=== PATIENT | female | born 1945 | race Caucasian/White ===

== ENCOUNTER → 2017-09-02 | Outpatient (CLI) | payer MEDICARE, OTHER ==
--- NOTE | 2017-09-02 15:55 | MR ---
EXAMINATION TYPE: MR brain wo con DATE OF EXAM: 09/02/2017 COMPARISON: None HISTORY: CVA, Loss of memory CONTRAST: Performed utilizing 0 mL intravenous Gadavist gadolinium contrast. TECHNIQUE: Multiplanar, multiecho imaging on a 3.0 Stella magnet is performed through the brain. Stud y is performed within 24 hours of arrival to the hospital. The craniovertebral junction is normal. The pituitary is normal. Diffusion-weighted imaging is performed. No abnormal hyperintensity is present to suggest an acute i ntracranial infarct or acute ischemic change. There is a focal area of hyperintensity on inversion recovery weighted sequences within the right pos terior parietal lobe. Some adjacent subcortical white matter changes present within a gyrus. Some min imal punctate white matter changes are in the subcortical white matter of the left frontal parietal l obes and within the right frontal lobe. Findings are nonspecific but could be related to microvascula r ischemic change. Ventricles and sulci are appropriate for the patient age. IMPRESSIONS: 1. Scattered punctate areas of white matter change, and not out of proportion to the patient's age.
== END | disposition home or self-care (01) ==
LOC: RADMRIMAIN 12:41
PROVIDERS: ATTEND Psychiatry & Neurology Neurology
DX: R90.89 Other abnormal findings on diagnostic imaging of central nervous system (principal)
CPT/HCPCS: 70551

== ENCOUNTER 2019-09-23 19:46 | Inpatient (IN) | payer MEDICARE, OTHER ==
[2019-09-23] MEDS ORDERED: SODIUM CHLORIDE 0.9% 500 ML 500 ML IV STA (20:40)
[2019-09-23] MEDS ORDERED: HYDROmorphone 0.5 MG/0.5 ML SYRINGE IVP STA ×2 (20:40→23:06)
[2019-09-23] MEDS ORDERED: ONDANSETRON 4 MG/2 ML VIAL IVP STA (20:40)
--- NOTE | 2019-09-23 20:49 | ED ---
General Adult HPI - General Chief complaint: Back Pain/Injury Stated complaint: back pain Time Seen by Provider: 09/23/19 20:15 Source: patient Mode of arrival: wheelchair Limitations: no limitations - History of Present Illness Initial comments: 74-year-old female patient presents to the emergency department today for evaluation of right upper quadrant abdominal pain radiating into the right shoulder and right back. Patient states the symptoms of the present for the last 4 days. States that she has had constant pain. She has had some mild nausea but no vomiting. States her bowel movements and urination is normal. Denies any fever or chills. Denies history of abdominal surgery. Patient states she has had issues with her gallbladder in the past. States she does have an appointment coming up with the GI specialist. Patient states that she has been too miserable over the last 4 days to wait. She denies any shortness of breath or cough. Denies dizziness or weakness. Patient denies any recent rash, diarrhea, constipation, numbness, tingling, dizziness, weakness, hematuria, dysuria, urinary urgency, urinary frequency, headache, visual changes, or any other complaints. - Related Data Home Medications Medication Instructions Recorded Confirmed Estrogens, Conjugated [Premarin] 0.3125 mg PO WE 09/23/19 09/23/19 Gabapentin 600 mg PO Q8H 09/23/19 09/23/19 Levothyroxine Sodium [Synthroid] 75 mcg PO DAILY 09/23/19 09/23/19 PARoxetine [Paxil] 20 mg PO DAILY 09/23/19 09/23/19 Simvastatin 5 mg PO HS 09/23/19 09/23/19 amLODIPine [Norvasc] 5 mg PO DAILY 09/23/19 09/23/19 oxyCODONE HCL [oxyCODONE HCL (IR)] 10 mg PO Q6H PRN 09/23/19 09/23/19 Allergies Allergy/AdvReac Type Severity Reaction Status Date / Time No Known Allergies Allergy Unverified 09/23/19 23:10 Review of Systems ROS Statement: Those systems with pertinent positive or pertinent negative responses have been documented in the HPI. ROS Other: All systems not noted in ROS Statement are negative. Past Medical History Past Medical History: Diabetes Mellitus, Hypertension Additional Past Medical History / Comment(s): chronic back pain History of Any Multi-Drug Resistant Organisms: None Reported Additional Past Surgical History / Comment(s): breast reduction, fatty liver Past Psychological History: No Psychological Hx Reported Smoking Status: Never smoker Past Alcohol Use History: None Reported Past Drug Use History: None Reported General Exam Limitations: no limitations General appearance: alert, in no apparent distress, other (This is a well- developed, well-nourished elderly female patient in no acute distress. Vital signs upon presentation are temperature 99.9F, pulse 101, respirations 16, blood pressure 145/78, pulse ox 95% on room air.) Eye exam: Present: normal appearance, PERRL, EOMI. Absent: scleral icterus, conjunctival injection, periorbital swelling ENT exam: Present: normal exam, normal oropharynx, mucous membranes moist Respiratory exam: Present: normal lung sounds bilaterally. Absent: respiratory distress, wheezes, rales, rhonchi, stridor Cardiovascular Exam: Present: regular rate, normal rhythm, normal heart sounds. Absent: systolic murmur, diastolic murmur, rubs, gallop, clicks GI/Abdominal exam: Present: soft, tenderness (Midepigastric and right upper quadrant tenderness), normal bowel sounds. Absent: distended, guarding, rebound, rigid Neurological exam: Present: alert, oriented X3, CN II-XII intact Psychiatric exam: Present: normal affect, normal mood Skin exam: Present: warm, dry, intact, normal color. Absent: rash Course Vital Signs 09/23/19 09/23/19 09/23/19 19:51 21:30 22:00 Temperature 99.9 F H Pulse Rate 101 H Respiratory 16 Rate Blood Pressure 145/78 146/77 153/133 O2 Sat by Pulse 95 87 L 90 L Oximetry 09/23/19 09/23/19 09/24/19 22:30 23:00 01:00 Temperature 98.9 F Pulse Rate 74 97 Respiratory 16 16 Rate Blood Pressure 108/87 133/90 159/82 O2 Sat by Pulse 99 99 98 Oximetry EKG Findings - EKG Comments: EKG Findings:: EKG obtained at 2221 shows normal sinus rhythm with a ventricular rate of 91, VA interval 112, QR scientologist 78, QT 334, QTC 410. No evidence of ST elevation or depression. Medical Decision Making - Medical Decision Making 74-year-old female patient presents to the emergency department today for evaluation of right upper quadrant pain radiating into her right chest into her right upper back. Patient is also reporting nausea with this. Occasional shortness of breath when the pain is at its worse. Physical examination revealed mild midepigastric tenderness. Labs reviewed and are unremarkable. EKG is unremarkable. Troponin is negative. Ultrasound is negative. CT abdomen and pelvis negative. Patient is still significantly uncomfortable upon reevaluation. Given presence of chest pain and abdominal pain we will admit to the hospital for serial troponins and observation overnight. Patient is agreeable to this plan - Lab Data Result diagrams: 09/23/19 21:05 09/23/19 21:05 Lab Results 09/23/19 09/23/19 09/23/19 Range/Units 21:05 21:05 21:05 WBC 10.3 (3.8-10.6) k/uL RBC 4.77 (3.80-5.40) m/uL Hgb 13.4 (11.4-16.0) gm/dL Hct 42.9 (34.0-46.0) % MCV 89.9 (80.0-100.0) fL MCH 28.1 (25.0-35.0) pg MCHC 31.2 (31.0-37.0) g/dL RDW 13.2 (11.5-15.5) % Plt Count 186 (150-450) k/uL Neutrophils % 70 % Lymphocytes % 20 % Monocytes % 6 % Eosinophils % 2 % Basophils % 0 % Neutrophils # 7.2 (1.3-7.7) k/uL Lymphocytes # 2.1 (1.0-4.8) k/uL Monocytes # 0.7 (0-1.0) k/uL Eosinophils # 0.2 (0-0.7) k/uL Basophils # 0.0 (0-0.2) k/uL Hypochromasia Slight Sodium 135 L (137-145) mmol/L Potassium 4.4 (3.5-5.1) mmol/L Chloride 97 L (98-107) mmol/L Carbon Dioxide 30 (22-30) mmol/L Anion Gap 8 mmol/L BUN 15 (7-17) mg/dL Creatinine 0.52 (0.52-1.04) mg/dL Est GFR (CKD-EPI)AfAm >90 (>60 ml/min/1.73 sqM) Est GFR (CKD-EPI)NonAf >90 (>60 ml/min/1.73 sqM) Glucose 162 H (74-99) mg/dL Plasma Lactic Acid Praveen (0.7-2.0) mmol/L Calcium 9.6 (8.4-10.2) mg/dL Total Bilirubin 1.1 (0.2-1.3) mg/dL AST 21 (14-36) U/L ALT 9 (4-34) U/L Alkaline Phosphatase 84 (38-126) U/L Troponin I (0.000-0.034) ng/mL Total Protein 7.7 (6.3-8.2) g/dL Albumin 4.7 (3.5-5.0) g/dL Amylase 51 (30-110) U/L Lipase 21 L (23-300) U/L Urine Color Yellow Urine Appearance Clear (Clear) Urine pH 6.0 (5.0-8.0) Ur Specific Ashton 1.018 (1.001-1.035) Urine Protein Trace H (Negative) Urine Glucose (UA) Negative (Negative) Urine Ketones Negative (Negative) Urine Blood Small H (Negative) Urine Nitrite Negative (Negative) Urine Bilirubin Negative (Negative) Urine Urobilinogen <2.0 (<2.0) mg/dL Ur Leukocyte Esterase Negative (Negative) Urine RBC 3 (0-5) /hpf Urine WBC 1 (0-5) /hpf Ur Squamous Epith Cells 1 (0-4) /hpf Urine Bacteria Rare H (None) /hpf Hyaline Casts 1 (0-2) /lpf Urine Mucus Occasional H (None) /hpf 09/23/19 09/23/19 Range/Units 21:05 21:05 WBC (3.8-10.6) k/uL RBC (3.80-5.40) m/uL Hgb (11.4-16.0) gm/dL Hct (34.0-46.0) % MCV (80.0-100.0) fL MCH (25.0-35.0) pg MCHC (31.0-37.0) g/dL RDW (11.5-15.5) % Plt Count (150-450) k/uL Neutrophils % % Lymphocytes % % Monocytes % % Eosinophils % % Basophils % % Neutrophils # (1.3-7.7) k/uL Lymphocytes # (1.0-4.8) k/uL Monocytes # (0-1.0) k/uL Eosinophils # (0-0.7) k/uL Basophils # (0-0.2) k/uL Hypochromasia Sodium (137-145) mmol/L Potassium (3.5-5.1) mmol/L Chloride (98-107) mmol/L Carbon Dioxide (22-30) mmol/L Anion Gap mmol/L BUN (7-17) mg/dL Creatinine (0.52-1.04) mg/dL Est GFR (CKD-EPI)AfAm (>60 ml/min/1.73 sqM) Est GFR (CKD-EPI)NonAf (>60 ml/min/1.73 sqM) Glucose (74-99) mg/dL Plasma Lactic Acid Praveen 1.1 (0.7-2.0) mmol/L Calcium (8.4-10.2) mg/dL Total Bilirubin (0.2-1.3) mg/dL AST (14-36) U/L ALT (4-34) U/L Alkaline Phosphatase (38-126) U/L Troponin I <0.012 (0.000-0.034) ng/mL Total Protein (6.3-8.2) g/dL Albumin (3.5-5.0) g/dL Amylase (30-110) U/L Lipase (23-300) U/L Urine Color Urine Appearance (Clear) Urine pH (5.0-8.0) Ur Specific Ashton (1.001-1.035) Urine Protein (Negative) Urine Glucose (UA) (Negative) Urine Ketones (Negative) Urine Blood (Negative) Urine Nitrite (Negative) Urine Bilirubin (Negative) Urine Urobilinogen (<2.0) mg/dL Ur Leukocyte Esterase (Negative) Urine RBC (0-5) /hpf Urine WBC (0-5) /hpf Ur Squamous Epith Cells (0-4) /hpf Urine Bacteria (None) /hpf Hyaline Casts (0-2) /lpf Urine Mucus (None) /hpf - Radiology Data Radiology results: report reviewed, image reviewed Ultrasound of the right upper quadrant abdomen is obtained. Report was reviewed in its entirety. Impression by Dr. Jara shows no dilated ducts. No gallstones seen. Normal right kidney. CT abdomen and pelvis with contrast was obtained. Report was reviewed in its entirety. Impression by Dr. Jara shows sigmoid diverticulosis without diverticulitis. Thoracolumbar dextroscoliosis with spondylitic changes. Pleural thickening and atelectasis at the lung bases. Two-view x-ray of the chest is obtained. Report was reviewed in its entirety. Impression by Dr. Jara shows minimal pleural reaction of the left lateral lung base. Normal heart. Disposition Clinical Impression: Abdominal pain, Chest pain Disposition: ADMITTED IP TO THIS HOSP Condition: Serious Decision to Admit Reason: Admit from EC Decision Date: 09/24/19 Decision Time: 00:52
[2019-09-23 21:23] LABS: Basophils % (A) 0 %; Eosinophils # (A) 0.2 k/uL (0-0.7); Eosinophils % (A) 2 %; HCT 42.9 % (34.0-46.0); HGB 13.4 gm/dL (11.4-16.0); Hypochromasia Slight; Lymphocytes # (A) 2.1 k/uL (1.0-4.8); Lymphocytes % (A) 20 %; MCH 28.1 pg (25.0-35.0); MCHC 31.2 g/dL (31.0-37.0); MCV 89.9 fL (80.0-100.0); Mean Platelet Volume 9.3; Monocytes # (A) 0.7 k/uL (0-1.0); Monocytes % (A) 6 %; Neutrophils # (A) 7.2 k/uL (1.3-7.7); Neutrophils % (A) 70 %; Platelet Count 186 k/uL (150-450); RBC 4.77 m/uL (3.80-5.40); RDW 13.2 % (11.5-15.5); WBC 10.3 k/uL (3.8-10.6)
[2019-09-23 21:32] LABS: ALT 9 U/L (4-34); AST 21 U/L (14-36); African American GFR (CKD) >90 (>60 ml/min/1.73 sqM); Albumin 4.7 g/dL (3.5-5.0); Alkaline Phosphatase 84 U/L (38-126); Amylase 51 U/L (30-110); Anion Gap 8 mmol/L; Blood Urea Nitrogen 15 mg/dL (7-17); Calcium 9.6 mg/dL (8.4-10.2); Carbon Dioxide 30 mmol/L (22-30); Chloride 97 mmol/L (98-107); Glucose 162 mg/dL (74-99); Lipase 21 U/L (23-300); Non-African American GFR(CKD) >90 (>60 ml/min/1.73 sqM); Potassium 4.4 mmol/L (3.5-5.1); Sodium 135 mmol/L (137-145); Total Bilirubin 1.1 mg/dL (0.2-1.3); Total Protein 7.7 g/dL (6.3-8.2)
[2019-09-23 22:28] LABS: Appearance,Urine Clear (Clear); Bacteria,Urine Rare /hpf; Bilirubin,Urine Negative (Negative); Blood,Urine Small (Negative); Color,Urine Yellow; Glucose,Urine (UA) Negative (Negative); Hyaline Casts,Urine 1 /lpf (0-2); Ketones,Urine Negative (Negative); Leukocyte Esterase,Urine Negative (Negative); Mucus,Urine Occasional /hpf; Nitrite,Urine Negative (Negative); Protein,Urine Trace (Negative); RBC,Urine 3 /hpf (0-5); Specific Gravity,Urine 1.018 (1.001-1.035); Squamous Epithelial Cell,Urine 1 /hpf (0-4); Urobilinogen,Urine <2.0 mg/dL (<2.0); WBC,Urine 1 /hpf (0-5)
--- NOTE | 2019-09-23 23:15 | US ---
EXAMINATION TYPE: US abdomen limited DATE OF EXAM: 09/23/2019 COMPARISON: NONE CLINICAL HISTORY: RUQ pain, R Shoulder pain. RUQ pain x 4 days. Hx gallbladder issues per patient. EXAM MEASUREMENTS: Liver Length: 14.8 cm Gallbladder Wall: 0.28 cm CHD: 0.31 cm, CBD obscured by gas. Right Kidney: 11.7 x 4.8 x 5.4 cm *Limited due to overlying bowel gas. Pancreas: Limited due to gas. Tail not seen. Liver: Appears to have an increased echogenicity. Most images taken intercostally. Gallbladder: Minimal internal echoes versus artifact. Measures in 7.4 cm in length. Evidence for sonographic Burgos's sign: No CBD: Not well seen, CHD measured as mentioned above. Right Kidney: No hydronephrosis or masses seen IMPRESSION: No dilated ducts. No gallstones seen. Normal right kidney.
--- NOTE | 2019-09-24 00:20 | CT ---
EXAMINATION TYPE: CT abdomen pelvis w con DATE OF EXAM: 09/23/2019 COMPARISON: None HISTORY: right side abd pain, appendectomy CT DLP: 1129.8 mGycm Automated exposure control for dose reduction was used. CONTRAST: Performed with IV Contrast, patient injected with 100 mL of Isovue 300. Multiple axial sections were obtained from the diaphragm to the floor the pelvis with IV contrast. There is some pleural thickening and atelectasis at both lung bases and more on the right side. There is no pericardial effusion. There is small amount of right-sided pleural fluid. Gallbladder liver spleen pancreas stomach appear intact. Bile ducts are not dilated. There is no adrenal mass. Kidneys show satisfactory contrast opacification. There is no hydronephrosi s. Ureters are not dilated. There is no retroperitoneal adenopathy. Bladder distends smoothly. There are bilateral inguinal hernias that contain fat. There are multiple sigmoid diverticula. There is no sign of diverticulitis. There is thoracolumbar de xtroscoliosis. There are spondylotic changes in the mid and lower lumbar spine. There is no compressi on fracture. The bony pelvis is intact. Appendix is not seen. There is no sign of thickened appendix. There is no mesenteric edema. There is no ascites or free air. There is no sign of a bowel obstruction. Delayed images show normal renal exc retion. IMPRESSION: Sigmoid diverticulosis without diverticulitis. Thoracolumbar dextroscoliosis with spondylotic changes . Pleural thickening and atelectasis at the lung bases.
[2019-09-24] MEDS ORDERED: ONDANSETRON 4 MG/2 ML VIAL IVP PRN (00:50)
[2019-09-24] MEDS ORDERED: NALOXONE 0.4 MG/ML 1 ML VIAL IV PRN (00:50)
--- NOTE | 2019-09-24 01:19 | XR ---
EXAMINATION TYPE: XR chest 2V DATE OF EXAM: 09/24/2019 COMPARISON: NONE HISTORY: Chest pain TECHNIQUE: 2 views FINDINGS: Heart is normal. There is some mild atelectasis and pleural reaction lateral left lung base . Right lung is clear. Thoracic aorta is atheromatous. There is no heart failure. Bony thorax is inta ct. IMPRESSION: Minimal pleural reaction lateral left lung base. Normal heart.
[2019-09-24] MEDS: HYDROmorphone 0.5 MG/0.5 ML SYRINGE IVP PRN ×3 (01:56→10:10)
[2019-09-24] MEDS ORDERED: MAG HYDROX/AL HYDROX/SIMETH 30 ML CUP PO PRN (03:24)
--- NOTE | 2019-09-24 03:28 | P.HPIM ---
History of Present Illness H&P Date: 09/24/19 Chief Complaint: RUQ abd pain 74-year-old female with chronic low back pain and hypertension Patient comes in complaining of 4 day history of right upper quadrant abdominal pain radiating to the right shoulder this pain has became even more severe today she reports that the constant pain 8 out of 10 in severity sharp pain gets worse with moving and calms down with pain pills she takes oxycodone for her back pain. Patient denies any associated nausea vomiting denies any palpitations denies any shortness of breath denies any sweating dizziness or lightheadedness. She denies any exertional dyspnea she denies any orthopnea or paroxysmal nocturnal dyspnea she denies having any similar episodes in the past she denies any coronary artery disease in the past. She denies any family history of coronary artery disease. Patient denies any nausea vomiting denies any diarrhea denies any unsanitary food denies any GI bleeding. In the ED EKG was showing normal sinus rhythm, troponins negative blood work overall unremarkable patient admitted for close monitoring of her pain trending her troponins to rule out acute coronary syndrome Review of Systems Pertinent positives as noted in HPI. All other systems were reviewed and are negative Past Medical History Past Medical History: Diabetes Mellitus, Hypertension Additional Past Medical History / Comment(s): chronic back pain History of Any Multi-Drug Resistant Organisms: None Reported Additional Past Surgical History / Comment(s): breast reduction, fatty liver Past Psychological History: No Psychological Hx Reported Smoking Status: Never smoker Past Alcohol Use History: None Reported Past Drug Use History: None Reported Medications and Allergies Home Medications Medication Instructions Recorded Confirmed Type Estrogens, Conjugated [Premarin] 0.3125 mg PO WE 09/23/19 09/23/19 History Gabapentin 600 mg PO Q8H 09/23/19 09/23/19 History Levothyroxine Sodium [Synthroid] 75 mcg PO DAILY 09/23/19 09/23/19 History PARoxetine [Paxil] 20 mg PO DAILY 09/23/19 09/23/19 History Simvastatin 5 mg PO HS 09/23/19 09/23/19 History amLODIPine [Norvasc] 5 mg PO DAILY 09/23/19 09/23/19 History oxyCODONE HCL [oxyCODONE HCL (IR)] 10 mg PO Q6H PRN 09/23/19 09/23/19 History Allergies Allergy/AdvReac Type Severity Reaction Status Date / Time No Known Allergies Allergy Unverified 09/23/19 23:10 Physical Exam Vitals: Vital Signs Temp Pulse Resp BP Pulse Ox 09/24/19 01:00 98.9 F 97 16 159/82 98 09/23/19 23:00 74 16 133/90 99 09/23/19 22:30 108/87 99 09/23/19 22:00 153/133 90 L 09/23/19 21:30 146/77 87 L 09/23/19 19:51 99.9 F H 101 H 16 145/78 95 Intake and Output 09/23/19 09/23/19 09/24/19 14:59 22:59 06:59 Other: Weight 76.204 kg Constitutional: No acute distress, conversant, pleasant Eyes: Anicteric sclerae, moist conjunctiva, Pupils equal round reactive to light ENMT: NC/AT Oropharynx clear, no erythema, or exudates Neck: Supple, FROM, no masses, or JVD No carotid bruits No thyromegaly Lungs: Clear to auscultation Clear to percussion Normal respiratory effort, no accessory muscle use Cardiovascular: Heart regular in rate and rhythm, No murmurs, gallops, or rubs No peripheral edema Abdominal: Soft Nontender, no guarding, rebound or rigidity Abdomen moving with respiration Normoactive bowel sounds No hepatomegaly, No splenomegaly No palpable mass No abdominal wall hernia noted Skin: Normal temperature, tone, texture, turgor No induration No subcutaneous nodules No rash, lesions No ulcers Extremities: No digital cyanosis No clubbing Pedal pulses intact and symmetrical Radial pulses intact and symmetrical No calf tenderness Psychiatric: Alert and oriented to person, place and time Appropriate affect fair judgement Neuro Muscles Strength 5/5 in all 4 extremities Sensation to light touch grossly present throughout Cranial nerves II-XII grossly intact No focal sensory deficits Lymphatics: no palpable cervical or supraclavicular , or inguinal lymph nodes Results CBC & Chem 7: 09/23/19 21:05 09/23/19 21:05 Labs: Abnormal Lab Results - Last 24 Hours (Table) 09/23/19 09/23/19 Range/Units 21:05 21:05 Sodium 135 L (137-145) mmol/L Chloride 97 L (98-107) mmol/L Glucose 162 H (74-99) mg/dL Lipase 21 L (23-300) U/L Urine Protein Trace H (Negative) Urine Blood Small H (Negative) Urine Bacteria Rare H (None) /hpf Urine Mucus Occasional H (None) /hpf Assessment and Plan Assessment: Right upper quadrant abdominal pain radiating to the right shoulder Computed tomography scan of the abdomen showed no acute pathology Liver ultrasound showed no gallstones Pain control Rule out acute coronary syndrome Trend troponins Cardiac monitoring Cardiology consult Trial of Maalox and PPI for possible dyspepsia Continue with oxycodone for low back pain Continue blood pressure meds CODE STATUS: Full code DVT prophylaxis: Heparin subcu 3 times a day Discussed with: Patient, ER, Anticipated length of stay less than [address]: Home A total of 75 minutes was spent on the care of this complex patient more than 50% of the time was spent in counseling and care coordination.
[2019-09-24] MEDS: PANTOPRAZOLE 40 MG TABLET PO SCH ×3 (05:17→17:06)
[2019-09-24] MEDS: GABAPENTIN 300 MG CAP PO SCH ×3 (05:17→18:14)
[2019-09-24] MEDS: LEVOTHYROXINE 75 MCG TAB PO SCH (08:29)
[2019-09-24] MEDS: HEPARIN SODIUM,PORCINE 5,000 UNIT/ML 1 ML VIAL SQ SCH ×3 (08:29→23:23)
[2019-09-24] MEDS ORDERED: amLODIPine 5 MG TAB PO SCH (09:00)
[2019-09-24] MEDS: PARoxetine 20 MG TAB PO SCH (10:34)
--- NOTE | 2019-09-24 10:46 | P.DS ---
Providers Date of admission: 09/24/19 01:01 Expected date of discharge: 09/24/19 Attending physician: Abran Figueroa MD Consults: 09/24/19 08:54 Consult Physician Stat Consulting Provider: Chiki Almanza Consult Reason/Comments: r shoulder pain Do you want consulting provider notified?: Yes Primary care physician: Virginia Mason Hospital Course: 74-year-old female with chronic low back pain and hypertension Patient comes in complaining of 4 day history of right upper quadrant abdominal pain radiating to the right shoulder this pain has became even more severe today she reports that the constant pain 8 out of 10 in severity sharp pain gets worse with moving and calms down with pain pills she takes oxycodone for her back pain. Patient denies any associated nausea vomiting denies any palpitations denies any shortness of breath denies any sweating dizziness or lightheadedness. She denies any exertional dyspnea she denies any orthopnea or paroxysmal nocturnal dyspnea she denies having any similar episodes in the past she denies any coronary artery disease in the past. She denies any family history of coronary artery disease. Patient denies any nausea vomiting denies any diarrhea denies any unsanitary food denies any GI bleeding. In the ED EKG was showing normal sinus rhythm, troponins negative blood work overall unremarkable patient admitted for close monitoring of her pain trending her troponins to rule out acute coronary syndrome Troponin was less than 0.0123 and acute coronary syndrome was ruled out. Patient was seen and examined this morning. No acute events overnight. Patient reports excruciating right shoulder pain and inability to move her shoulder. Pain is aggravated with movement of her right shoulder. She also reports pain in her anterior chest with deep inspiration. She denies any shoulder injury. She denies any falls. She denies any chest pain, shortness of breath or palpitations. No nausea or vomiting. No fever or chills. General: [non toxic], [no distress], [appears at stated age] Derm: [warm], [dry] Head: [atraumatic], [normocephalic], [symmetric] Eyes: [EOMI], [no lid lag], [anicteric sclera] Mouth: [no lip lesion], [mucus membranes moist] Cardiovascular: [S1S2 reg], [slightly tachycardic], [positive DP pulse bilateral], Lungs: [CTA bilateral], [no rhonchi, no rales] , [no accessory muscle use] Abdominal: [soft], [ nontender to palpation, Burgos's negative], [no guarding], [no appreciable organomegaly] Ext: [no gross muscle atrophy], [no edema], [no contractures], tenderness to palpation of the anterior right shoulder with limited range of motion due to pain Neuro: [no focal neuro deficits] Psych: [Alert], [oriented], [appropriate affect] Right shoulder pain Hypothyroidism Hypertension Depression Acute coronary syndrome has been ruled out. The right shoulder pain appears to be musculoskeletal in nature. We will obtain right shoulder x-ray along with orthopedic consult. PT has been consulted as well. I will order d-dimer to rule out PE as a cause of her pleuritic pain. Restart Synthroid for hypothyroidism. Restart amlodipine for hypertension. Restart Paxil for depression. Patient is pending clinical improvement. Likely DC today or tomorrow depending on her improvement with pain and above workup. Pertinent Studies: Abdominal ultrasound, CT abdomen and pelvis, chest x-ray Patient Condition at Discharge: Stable Plan - Discharge Summary Discharge Rx Participant: No New Discharge Prescriptions: No Action PARoxetine [Paxil] 20 mg PO DAILY Estrogens, Conjugated [Premarin] 0.3125 mg PO WE oxyCODONE HCL [oxyCODONE HCL (IR)] 10 mg PO Q6H PRN PRN Reason: Pain Levothyroxine Sodium [Synthroid] 75 mcg PO DAILY Gabapentin 600 mg PO Q8H amLODIPine [Norvasc] 5 mg PO DAILY Simvastatin 5 mg PO HS Discharge Medication List Estrogens, Conjugated [Premarin] 0.3125 mg PO WE 09/23/19 [History] Gabapentin 600 mg PO Q8H 09/23/19 [History] Levothyroxine Sodium [Synthroid] 75 mcg PO DAILY 09/23/19 [History] PARoxetine [Paxil] 20 mg PO DAILY 09/23/19 [History] Simvastatin 5 mg PO HS 09/23/19 [History] amLODIPine [Norvasc] 5 mg PO DAILY 09/23/19 [History] oxyCODONE HCL [oxyCODONE HCL (IR)] 10 mg PO Q6H PRN 09/23/19 [History] Follow up Appointment(s)/Referral(s): Feliberto Dumas MD [REFERRING] - 1-2 days
[2019-09-24 13:29] VITALS: BMI 27.9
--- NOTE | 2019-09-24 13:40 | XR ---
EXAMINATION TYPE: XR shoulder complete RT DATE OF EXAM: 09/24/2019 CLINICAL HISTORY: Right shoulder pain for 2 years. Worse in last 2 days. No injury. TECHNIQUE: Three views of the right shoulder are obtained. COMPARISON: None. FINDINGS: There is no acute fracture/dislocation evident in the right shoulder. There is joint spac e narrowing of the glenohumeral joint with sclerosis and subchondral cystic changes. There is cortica l irregularity of the greater tuberosity. There is mild degenerative change of the acromioclavicular joint. The visualized ribs are intact and unremarkable. IMPRESSION: 1. No acute fracture or dislocation in the right shoulder. 2. Degenerative changes of the glenohumeral joint and acromio clavicular joint. 3. Cortical irregularity of the greater tuberosity may represent sequela of chronic rotator cuff path ology.
[2019-09-24] MEDS ORDERED: methylPREDNISolone ACETATE 40 MG/ML 1 ML VIAL INTRAARTIC STA (14:16)
[2019-09-24] MEDS ORDERED: LIDOCAINE 2% INJ 20 MG/ML (20 ML MDV) SQ STA (14:17)
--- NOTE | 2019-09-24 14:25 | P.CNOR ---
History of Present Illness - [facility] Consult date: 09/24/19 Consult reason: joint pain (Right shoulder pain) History of present illness: The patient is a 74 y/o female who presented to the ER with right upper quadrant pain that radiated to her right shoulder. She states the pain started on Saturday and has progressively worsened. The patient did have shoulder surgery by Dr. Almanza in 2012 and last saw him in July 2018 and she received a cortisone injection in the shoulder for glenohumeral osteoarthritis. The shoulder has been feeling ok until last Saturday. The patient is very tired and unable to sleep due to the pain. A CT of the abdomen and abdominal ultrasound revealed no issues with her gallbladder. Orthopedics has been consulted for further evaluation and care of her right shoulder pain. The patient denies any recent falls or trauma to the right shoulder. Review of Systems Constitutional: Denies chills, Denies fever Cardiovascular: Denies chest pain, Denies shortness of breath Respiratory: Denies cough Gastrointestinal: Reports abdominal pain, Denies diarrhea, Denies nausea, Denies vomiting Musculoskeletal: right: shoulder pain, shoulder stiffness Past Medical History Past Medical History: Diabetes Mellitus, Hyperlipidemia, Hypertension, Liver Disease, Osteoarthritis (OA) Additional Past Medical History / Comment(s): Gallbladder problems, fatty liver, NIDDM type II-diet controlled, hypothyroid, arthritis bilateral hands/back, chronic back pain/scoliosis. History of Any Multi-Drug Resistant Organisms: None Reported Past Surgical History: Appendectomy, Tonsillectomy Additional Past Surgical History / Comment(s): Bilateral breast reductions, tummy tuck, colonoscopy Past Anesthesia/Blood Transfusion Reactions: No Reported Reaction Additional Past Anesthesia/Blood Transfusion Reaction / Comm: Pt has receive au to transfusion in past Smoking Status: Never smoker - Past Family History Father Additional Family Medical History / Comment(s): Father had migraines. He lived to be 75yrs old. Mother Family Medical History: Congestive Heart Failure (CHF), Diabetes Mellitus Additional Family Medical History / Comment(s): Mother lived to be 75 yrs. Medications and Allergies Home Medications Medication Instructions Recorded Confirmed Type Estrogens, Conjugated [Premarin] 0.3125 mg PO WE 09/23/19 09/23/19 History Gabapentin 600 mg PO Q8H 09/23/19 09/23/19 History Levothyroxine Sodium [Synthroid] 75 mcg PO DAILY 09/23/19 09/23/19 History PARoxetine [Paxil] 20 mg PO DAILY 09/23/19 09/23/19 History Simvastatin 5 mg PO HS 09/23/19 09/23/19 History amLODIPine [Norvasc] 5 mg PO DAILY 09/23/19 09/23/19 History oxyCODONE HCL [oxyCODONE HCL (IR)] 10 mg PO Q6H PRN 09/23/19 09/23/19 History Pantoprazole [Protonix] 40 mg PO DAILY #30 tablet. 09/24/19 Rx Allergies Allergy/AdvReac Type Severity Reaction Status Date / Time No Known Allergies Allergy Unverified 09/23/19 23:10 Physical Examination The patient is a 74 y/o female in no acute distress. She is alert and oriented x3. Exam of the right shoulder reveals active forward elevation 85 degrees. Active abduction 85 degrees. ER to 80 degrees. IR, ER, and scaption strength 2/5. No significant subacromial crepitus. Smooth ROM at waist level. Negative Hawkin's test. Negative apprehension. Sensation intact over medial and lateral forearm, thenar region, hypothenar region, mid-palm, dorsal 1st web space, lateral dorsal hand, and fingertips. Brachial and radial pulses 2+. Capillary refill in all fingertips less than 2 seconds. Results - Labs Labs: Abnormal Lab Results - Last 24 Hours (Table) 09/23/19 09/23/19 Range/Units 21:05 21:05 Sodium 135 L (137-145) mmol/L Chloride 97 L (98-107) mmol/L Glucose 162 H (74-99) mg/dL Lipase 21 L (23-300) U/L Urine Protein Trace H (Negative) Urine Blood Small H (Negative) Urine Bacteria Rare H (None) /hpf Urine Mucus Occasional H (None) /hpf H & H 09/23/19 Range/Units 21:05 Hgb 13.4 (11.4-16.0) gm/dL Hct 42.9 (34.0-46.0) % Result Diagrams: 09/23/19 21:05 09/23/19 21:05 - Diagnostic results Shoulder x-ray: image reviewed (X-rays of the right shoulder reveal glenohumeral and AC joint osteoarthritis. No acute fractures seen. ) Assessment and Plan (1) Primary osteoarthritis, right shoulder Current Visit: Yes Status: Acute Code(s): M19.011 - PRIMARY OSTEOARTHRITIS, RIGHT SHOULDER SNOMED Code(s): 207996960257813 (2) Abdominal pain Current Visit: Yes Status: Acute Code(s): R10.9 - UNSPECIFIED ABDOMINAL PAIN SNOMED Code(s): 84016225 Plan: The clinical and x-ray findings were discussed with the patient. Diagnosis and treatment options were reviewed. The patient opts for a cortisone injection in her right shoulder today. Under sterile conditions, the glenohumeral joint of the right shoulder was injected with 1 cc of DepoMedrol 40mg/1cc and 2 cc of 2% Lidocaine. Risks of injection were discussed in detail today, which include bleeding, infection, blood vessel and nerve damage, discoloration of skin, tendon injury, muscle injury, failure to relieve the problem, and allergic reaction. Advised appli cation of ice as needed following injection. Continue pain control with oxycodone. Physical therapy has evaluated the patient. She may be discharged today from an orthopedic standpoint with a follow up with Dr. Almanza in 1 week.
[2019-09-24] MEDS: ATORVASTATIN 10 MG TAB PO SCH (20:14)
--- NOTE | 2019-09-24 21:02 | P.CONS ---
History of Present Illness - Reason for Consult Consult date: 09/24/19 Abdominal pain Requesting physician: Cata Quiroz - Chief Complaint Shoulder and abdominal pain - History of Present Illness 74-year-old female with medical comorbidities including diabetes mellitus, hypertension, hyperlipidemia, fatty liver disease, chronic back pain and osteoarthritis. She presented to the hospital with complaints of abdominal and shoulder pain. Of note the patient's daughter seem bedside and helps provide some of the history. The patient was seen by the orthopedic surgery service and is had chronic complaints in the past and was treated with steroid injection for her right shoulder pain. She also reports pain in the right upper abdomen described as sharp in quality and constant. No vomiting reported that the patient's does report nausea. Currently the patient is denying any constipation or diarrhea However patient's daughter reports that she was having some loose bowel movements prior to presentation. The patient has a known history of acid reflux, she has been prescribed Protonix daily however the patient's daughter reports that she is noncompliant with medication and only takes it on an as- needed basis. She has previously undergone an EGD with Dr. Cabello at [facility] approximately 2 years ago and colonoscopy is over 10 years old. Computed tomography scan of the abdomen significant for diverticulosis without diverticulitis and some other chronic changes. Ultrasound of the abdomen negative for gallstones, cholecystitis or dilated ducts. Laboratory evaluation significant for WBC 10.3, hemoglobin 13.4, platelet count 186,000, total bilirubin 1.1, alkaline phosphatase 84, AST 21 and ALT 9. Review of Systems REVIEW OF SYSTEMS: CONSTITUTIONAL: Denies any fevers, chills, weight change or fatigue. CARDIOVASCULAR: Denies any chest pain, palpitations high or low blood pressures RESPIRATORY: Denies any shortness of breath, hemoptysis or cough. GENITOURINARY: No dysuria or hematuria. MUSCULOSKELETAL: No weakness reported, patient has chronic back pain as well as presentation for right shoulder pain. SKIN: Denies any new rashes or lesions, jaundice or pallor. PSYCHIATRIC: Denies any depression or anxiety. NEUROLOGY: Denies headache, denies any new focal deficits. EARS/NOSE/THROAT: No recent hearing change, congestion, nasal discharge or sore throat. EYES: No pain in eyes, discharge or change in vision. GASTROINTESTINAL: As per HPI. Past Medical History Past Medical History: Diabetes Mellitus, Hyperlipidemia, Hypertension, Liver Disease, Osteoarthritis (OA) Additional Past Medical History / Comment(s): Gallbladder problems, fatty liver, NIDDM type II-diet controlled, hypothyroid, arthritis bilateral hands/back, chronic back pain/scoliosis. History of Any Multi-Drug Resistant Organisms: None Reported Past Surgical History: Appendectomy, Tonsillectomy Additional Past Surgical History / Comment(s): Bilateral breast reductions, tummy tuck, colonoscopy Past Anesthesia/Blood Transfusion Reactions: No Reported Reaction Additional Past Anesthesia/Blood Transfusion Reaction / Comm: Pt has receive auto transfusion in past Smoking Status: Never smoker - Past Family History Father Additional Family Medical History / Comment(s): Father had migraines. He lived to be 75yrs old. Mother Family Medical History: Congestive Heart Failure (CHF), Diabetes Mellitus Additional Family Medical History / Comment(s): Mother lived to be 75 yrs. Medications and Allergies Home Medications Medication Instructions Recorded Confirmed Type Estrogens, Conjugated [Premarin] 0.3125 mg PO WE 09/23/19 09/23/19 History Gabapentin 600 mg PO Q8H 09/23/19 09/23/19 History Levothyroxine Sodium [Synthroid] 75 mcg PO DAILY 09/23/19 09/23/19 History PARoxetine [Paxil] 20 mg PO DAILY 09/23/19 09/23/19 History Simvastatin 5 mg PO HS 09/23/19 09/23/19 History amLODIPine [Norvasc] 5 mg PO DAILY 09/23/19 09/23/19 History oxyCODONE HCL [oxyCODONE HCL (IR)] 10 mg PO Q6H PRN 09/23/19 09/23/19 History Pantoprazole [Protonix] 40 mg PO DAILY #30 tablet. 09/24/19 Rx Allergies Allergy/AdvReac Type Severity Reaction Status Date / Time No Known Allergies Allergy Unverified 09/23/19 23:10 Physical Exam Vitals: Vital Signs Temp Pulse Pulse Resp BP BP Pulse Ox 09/24/19 09:00 98.9 F 92 19 151/71 09/24/19 08:34 79 18 124/76 98 09/24/19 01:00 98.9 F 97 16 159/82 98 09/23/19 23:00 74 16 133/90 99 09/23/19 22:30 108/87 99 09/23/19 22:00 153/133 90 L 09/23/19 21:30 146/77 87 L 09/23/19 19:51 99.9 F H 101 H 16 145/78 95 Intake and Output 09/23/19 09/24/19 09/24/19 22:59 06:59 14:59 Other: Weight 76.204 kg 76.204 kg On physical examination, patient appears comfortable in no apparent distress. HEAD: Normocephalic, atraumatic. EYES: No scleral icterus. No conjunctival injection. MOUTH: No lesions, tongue midline. NECK: Trachea midline, no gross abnormalities. CHEST: Clear to auscultation with no wheezing or rhonchi appreciated. HEART: Regular rate and rhythm. ABDOMEN: Soft, obese, nontender to palpation. Bowel sounds are positive. No organomegaly. No guarding or rigidity. EXTREMITIES: No pedal edema. SKIN: No rashes, no jaundice. NEUROLOGIC: Alert and oriented x3. No focal deficits. Results CBC & Chem 7: 09/23/19 21:05 09/23/19 21:05 Labs: Abnormal Lab Results - Last 24 Hours (Table) 09/23/19 09/23/19 Range/Units 21:05 21:05 Sodium 135 L (137-145) mmol/L Chloride 97 L (98-107) mmol/L Glucose 162 H (74-99) mg/dL Lipase 21 L (23-300) U/L Urine Protein Trace H (Negative) Urine Blood Small H (Negative) Urine Bacteria Rare H (None) /hpf Urine Mucus Occasional H (None) /hpf US - abdomen: report reviewed (Ultrasound of the abdomen negative for cholelithiasis, cholecystitis or dilated ducts.) Assessment and Plan (1) Abdominal pain Narrative/Plan: 74-year-old female with multiple medical comorbidities including GERD and chronic back and shoulder pain who presented with pain in the shoulder and right upper quadrant of her abdomen. Extensive evaluation including computed tomography scan of the abdomen which was negative for any acute intra-abdominal process and significant for diverticulosis and some other chronic findings, as well as ultrasound of the abdomen which showed a normal gallbladder, no CBD di lation and no cholelithiasis as well as normal liver enzymes and CBC. Patient has a known history of GERD and is noncompliance with PPI therapy taking it only on an as-needed basis. Previously had EGD 2 years ago colonoscopy over 10 years ago. Unclear etiology, may be related to musculoskeletal complaints and right shoulder pain, extensive workup hasn't made a biliary source very unlikely in the patient's use of narcotics prohibited testing with HIDA scan, may also be related to uncontrolled GERD, functional bowel disorder or other etiology. Current Visit: Yes Status: Acute Code(s): R10.9 - UNSPECIFIED ABDOMINAL PAIN SNOMED Code(s): 63221172 (2) Nonalcoholic fatty liver disease Current Visit: Yes Status: Acute Code(s): K76.0 - FATTY (CHANGE OF) LIVER, NOT ELSEWHERE CLASSIFIED SNOMED Code(s): 108280999 (3) GERD (gastroesophageal reflux disease) Current Visit: Yes Status: Acute Code(s): K21.9 - GASTRO-ESOPHAGEAL REFLUX DISEASE WITHOUT ESOPHAGITIS SNOMED Code(s): 547062443 (4) Primary osteoarthritis, right shoulder Current Visit: Yes Status: Acute Code(s): M19.011 - PRIMARY OSTEOARTHRITIS, RIGHT SHOULDER SNOMED Code(s): 988855717513560 Plan: Supportive care Okay for diet Protonix twice a day Imaging including computed tomography scan abdomen and ultrasound reviewed Follow up with orthopedic surgery as recommended No plans for endoscopic evaluation at this time If patient is able to refrain from use of narcotics in the outpatient setting she can follow up with her primary director global intelligence for scheduling of HIDA Okay for discharge when otherwise medically stable Thank you for allowing us to participate in the care of the patient
[2019-09-25] MEDS: GABAPENTIN 300 MG CAP PO SCH ×3 (01:57→17:23)
[2019-09-25] MEDS ORDERED: DILTIAZEM DRIP BOLUS FROM BAG 1 MG SOLN IV STA (02:49)
[2019-09-25] MEDS ORDERED: HEPARIN SODIUM,PORCINE 5,000 UNIT/ML 1 ML VIAL IV ONE (02:51)
[2019-09-25] MEDS ORDERED: HEPARIN SODIUM,PORCINE 5,000 UNIT/ML 1 ML VIAL IV PRN (02:51)
[2019-09-25] MEDS ORDERED: DILTIAZEM 125 MG in SODIUM CHLORIDE 0.9% 100 ML IV SCH (03:00)
[2019-09-25] MEDS ORDERED: HEPARIN SOD,PORK IN 0.45% NACL 25,000 UNIT in 0.45% NACL 1 250ML.BAG IV SCH (03:00)
[2019-09-25 03:33] LABS: Basophils % (A) 0 %; Eosinophils # (A) 0.1 k/uL (0-0.7); Eosinophils % (A) 1 %; HCT 39.3 % (34.0-46.0); HGB 12.3 gm/dL (11.4-16.0); Lymphocytes % (A) 25 %; MCH 28.1 pg (25.0-35.0); MCHC 31.3 g/dL (31.0-37.0); MCV 89.9 fL (80.0-100.0); Mean Platelet Volume 9.4; Monocytes # (A) 0.7 k/uL (0-1.0); Monocytes % (A) 6 %; Neutrophils # (A) 8.1 k/uL (1.3-7.7); Neutrophils % (A) 67 %; Platelet Count 194 k/uL (150-450); RBC 4.37 m/uL (3.80-5.40); RDW 13.6 % (11.5-15.5); WBC 12.1 k/uL (3.8-10.6)
[2019-09-25 03:50] LABS: Partial Thromboplastin Time 26.8 sec (22.0-30.0); Prothrombin Time 10.5 sec (9.0-12.0)
[2019-09-25 04:08] LABS: Glucose,Whole Blood 181 mg/dL (75-99)
[2019-09-25 06:50] LABS: Glucose,Whole Blood 150 mg/dL (75-99)
[2019-09-25] MEDS: LEVOTHYROXINE 75 MCG TAB PO SCH (08:05)
[2019-09-25] MEDS: PARoxetine 20 MG TAB PO SCH (08:05)
[2019-09-25] MEDS: METOPROLOL TARTRATE 25 MG TAB PO SCH ×2 (08:05→20:28)
[2019-09-25] MEDS: PANTOPRAZOLE 40 MG TABLET PO SCH ×2 (08:05→17:23)
[2019-09-25] MEDS: AMIODARONE 200 MG TAB PO SCH ×2 (08:06→20:28)
[2019-09-25] MEDS: APIXABAN 5 MG TAB PO SCH ×2 (08:06→20:28)
--- NOTE | 2019-09-25 09:00 | P.PN ---
Subjective Progress Note Date: 09/25/19 Principal diagnosis: Right shoulder pain. Rotator cuff impingement. Degenerative arthritis right shoulder. Cervical radiculopathy right upper extremity. The patient is a 74 y/o female who presented to the ER with right upper quadrant pain that radiated to her right shoulder. She states the pain started on Saturday and has progressively worsened. The patient did have shoulder surgery by Dr. Almanza in 2012 and last saw him in July 2018 and she received a cortisone injection in the shoulder for glenohumeral osteoarthritis. The shoulder has been feeling ok until last Saturday. The patient is very tired and unable to sleep due to the pain. A CT of the abdomen and abdominal ultrasound revealed no issues with her gallbladder. Orthopedics has been consulted for further eval uation and care of her right shoulder pain. The patient denies any recent falls or trauma to the right shoulder. The patient had a cortisone injection into the right shoulder yesterday which she states did improve her shoulder symptoms. She continues to have posterior scapular pain which radiates down the arm. Objective - Vital Signs Vital signs: Vital Signs Temp 98.3 F 09/25/19 04:05 Pulse 151 H 09/25/19 04:05 Resp 12 09/25/19 04:05 BP 129/91 09/25/19 04:05 Pulse Ox 90 L 09/25/19 04:05 Intake & Output 09/24/19 09/25/19 09/25/19 18:59 06:59 18:59 Intake Total 200.583 20 Output Total 700 0 Balance -499.417 20 Weight 76.204 kg 75.4 kg Intake: IV 40 20 .9 NS 40 20 Intake, IV Titration 10.583 Amount Diltiazem 125 mg In 10.583 Sodium Chloride 0.9% 100 ml @ Per Protocol IV .Q0M [facility] Rx#:[id number] Oral 150 Output: Urine 700 0 Other: Voiding Method Bedside Commode Bedpan # Voids 1 1 - Exam This is a pleasant 74-year-old female in no acute distress. She is alert and oriented 3. Exam of the right shoulder reveals forward flexion to about 130. Abduction to 100 with minimal pain. There is pain with palpation about the right trapezius muscle and parascapular musculature. There is radiating pain with cervical rotation and side flexion. Diminished talent consultant strength and thumb extension to the right upper extremity compared to left. Radial pulses +2/4. Normal sensation to the upper extremities. - Labs CBC & Chem 7: 09/25/19 03:16 09/23/19 21:05 Labs: Abnormal Lab Results - Last 24 Hours (Table) 09/25/19 09/25/19 09/25/19 Range/Units 03:16 04:06 06:03 WBC 12.1 H (3.8-10.6) k/uL Neutrophils # 8.1 H (1.3-7.7) k/uL APTT 37.4 H (22.0-30.0) sec POC Glucose (mg/dL) 181 H (75-99) mg/dL 09/25/19 Range/Units 06:48 WBC (3.8-10.6) k/uL Neutrophils # (1.3-7.7) k/uL APTT (22.0-30.0) sec POC Glucose (mg/dL) 150 H (75-99) mg/dL Microbiology - Last 24 Hours (Table) 09/23/19 21:05 Blood Culture - Preliminary Blood No Growth after 24 hours Assessment and Plan (1) Right cervical radiculopathy Current Visit: Yes Status: Acute Code(s): M54.12 - RADICULOPATHY, CERVICAL R EGION SNOMED Code(s): 06126421221548842 (2) Abdominal pain Current Visit: Yes Status: Acute Code(s): R10.9 - UNSPECIFIED ABDOMINAL PAIN SNOMED Code(s): 05305648 (3) Primary osteoarthritis, right shoulder Current Visit: Yes Status: Acute Code(s): M19.011 - PRIMARY OSTEOARTHRITIS, RIGHT SHOULDER SNOMED Code(s): 781122000400372 Plan: The clinical findings are discussed with the patient. I have recommended a soft cervical collar for comfort as needed to help alleviate some of her radicular pain. She is to follow-up with Dr. Andrade when discharged to discuss possible steroid epidural injections.
--- NOTE | 2019-09-25 10:03 | ECHOF ---
Referral Reason:afib MEASUREMENTS -------- HEIGHT: 165.1 cm WEIGHT: 65.8 kg BP: IVSd: 1.2 cm (0.6 - 1.1) LVIDd: 3.3 cm (3.9 - 5.3) LVPWd: 0.9 cm (0.6 - 1.1) EDV(Teich): 44 ml IVSs: 1.3 cm LVIDs: 2.3 cm LVPWs: 1.6 cm %IVS Thck: 3 % ESV(Teich): 18 ml EF(Teich): 60 % %FS: 31 % SV(Teich): 26 ml LA Diam: 5.5 cm (2.7 - 3.8) LALs A4C: 5.8 cm LAAs A4C: 25.8 cm LAESV A-L A4C: 98 ml LAESV MOD A4C: 96 ml LALs A2C: 5.3 cm LAAs A2C: 23.7 cm LAESV A-L A2C: 91 ml LAESV MOD A2C: 87 ml LAESV(A-L): 99 ml LAESV Index (A-L): 57.13 ml/m Ao Diam: 3.1 cm (2.0 - 3.7) AV Cusp: 1.8 cm (1.5 - 2.6) LA Diam: 3.8 cm (2.7 - 3.8) MV EXCURSION: 10.325 mm (> 18.000) MV EF SLOPE: 93 mm/s (70 - 150) EPSS: 0.5 cm TR Vmax: 2.11 m/s TR maxP.84 mmHg RAP: 5.00 mmHg RVSP: 22.84 mmHg FINDINGS -------- Atrial fibrillation. This was a technically good study. The left ventricular size is normal. There is mild concentric left ventricular hypertrophy. Overa ll left ventricular systolic function is normal with, an EF between 55 - 60 %. The right ventricle is normal in size. The left atrium is markedly dilated. LA is severely dilated >40 ml/m2 The right atrial size is normal. There is mild aortic valve sclerosis. There is no evidence of aortic regurgitation. The mitral valve leaflets are mildly thickened. Mild mitral annular calcification present. Mild m itral regurgitation is present. Mild tricuspid regurgitation present. Right ventricular systolic pressure is normal at < 35 mmHg. Trace/mild (physiologic) pulmonic regurgitation. The aortic root size is normal. There is no pericardial effusion. CONCLUSIONS -------- 1. The left ventricular size is normal. 2. There is mild concentric left ventricular hypertrophy. 3. Overall left ventricular systolic function is normal with, an EF between 55 - 60 %. 4. The right ventricle is normal in size. 5. The left atrium is markedly dilated. 6. LA is severely dilated >40 ml/m2 7. The right atrial size is normal. 8. There is mild aortic valve sclerosis. 9. The mitral valve leaflets are mildly thickened. 10. Mild mitral annular calcification present. 11. Mild mitral regurgitation is present. 12. Mild tricuspid regurgitation present. 13. Trace/mild (physiologic) pulmonic regurgitation. [employer] FORMER: Marya Mercado RDCS
--- NOTE | 2019-09-25 10:44 | CONS ---
CONSULTATION Mrs. Amanda is a 74-year-old female with known history of hypertension and hyperlipidemia who presented to the hospital with symptoms of shoulder discomfort and back discomfort. She underwent injection for treatment yesterday. She went in atrial fibrillation with rapid ventricular response. The patient is active physically, has no exertional chest discomfort, has no dizziness or palpitation. No prior documented history of atrial fibrillation. She denies any history of PND, orthopnea, or peripheral edema. She gardens on a regular basis without any difficulty. She has seen a drone software development engineer long time ago, but does not recall the reason. She feels the palpitation today, but according to her, she has not felt that before. The shoulder discomfort is reproducible. She continues to be at this time on IV Cardizem, Lipitor 10 mg daily, IV heparin, levothyroxine. PHYSICAL EXAMINATION: Blood pressure running in the 110 to 150 with a heart rate in the 150. She is afebrile this morning. HEAD: Normocephalic. EYES: Sclerae nonicteric. NECK: Good upstroke, no bruit, no jugular venous distention. LUNGS: Clear to auscultation. HEART: Irregular, regular, S1, S2. No S3 with systolic murmur heard at the base. No diastolic murmur, no rub. ABDOMEN: Soft, nontender. EXTREMITIES: No edema. Shoulder discomfort reproducible by movement. LAB DATA: Revealed troponin less than 0.012, BUN and creatinine 15 and 0.52, potassium 4.4, hemoglobin 12.3. EKG on presentation reveals sinus mechanism with nonspecific ST-T wave changes. Her chest x-ray showed no acute infiltrate. She had a shoulder x-ray that revealed no fracture with degenerative changes noted at the joint. IMPRESSION: 1. Atrial fibrillation of new onset, not documented in the past. 2. History of hypertension. 3. Hyperlipidemia. 4. Musculoskeletal arthritic pain in the right shoulder. RECOMMENDATION: I would recommend to start on oral anticoagulation. I will switch her to oral beta rock and calcium channel rock. I will add amiodarone to her regimen. Will obtain an echocardiogram with Doppler and depending on her progress, further recommendation will be made. Thank you for this consult. Will follow with you. MMODL / IJN: [id number] /
--- NOTE | 2019-09-25 14:56 | P.PN ---
Subjective Progress Note Date: 09/25/19 Principal diagnosis: Right shoulder pain, A. fib with RVR Patient was seen and examined. No acute events overnight. Overnight, patient went into A. fib with RVR. [facility]. Started on Cardizem drip now discontinued for metoprolol. Started on Eliquis, heparin drip discontinued. Patient denies any chest pain, shortness breath or palpitations. Heart rate in the 70s currently. Objective - Vital Signs Vital signs: Vital Signs Temp 96.4 F L 09/25/19 12:00 Pulse 67 09/25/19 12:00 Resp 16 09/25/19 12:00 BP 98/59 09/25/19 12:00 Pulse Ox 95 09/25/19 12:00 Intake & Output 09/24/19 09/25/19 09/25/19 18:59 06:59 18:59 Intake Total 200.583 145 Output Total 700 800 Balance -499.417 -655 Weight 76.204 kg 75.4 kg Intake: IV 40 100 .9 NS 40 100 Intake, IV Titration 10.583 45 Amount Diltiazem 125 mg In 10.583 45 Sodium Chloride 0.9% 100 ml @ Per Protocol IV .Q0M [facility] Rx#:[id number] Oral 150 Output: Urine 700 800 Other: Voiding Method Bedside Commode Bedside Commode Bedpan Bedpan # Voids 1 1 - Exam General: [non toxic], [no distress], [appears at stated age] Derm: [warm], [dry] Head: [atraumatic], [normocephalic], [symmetric] Eyes: [EOMI], [no lid lag], [anicteric sclera] Mouth: [no lip lesion], [mucus membranes moist] Cardiovascular: [S1S2 reg], [no murmur], [positive DP pulse bilateral], Lungs: [CTA bilateral], [no rhonchi, no rales] , [no accessory muscle use] Abdominal: [soft], [ nontender to palpation, Burgos's negative], [no guarding], [no appreciable organomegaly] Ext: [no gross muscle atrophy], [no edema], [no contractures], tenderness to palpation of the anterior right shoulder with limited range of motion due to pain Neuro: [no focal neuro deficits] Psych: [Alert], [oriented], [appropriate affect] - Labs CBC & Chem 7: 09/25/19 03:16 09/23/19 21:05 Labs: Abnormal Lab Results - Last 24 Hours (Table) 09/25/19 09/25/19 09/25/19 Range/Units 03:16 04:06 06:03 WBC 12.1 H (3.8-10.6) k/uL Neutrophils # 8.1 H (1.3-7.7) k/uL APTT 37.4 H (22.0-30.0) sec POC Glucose (mg/dL) 181 H (75-99) mg/dL 09/25/19 Range/Units 06:48 WBC (3.8-10.6) k/uL Neutrophils # (1.3-7.7) k/uL APTT (22.0-30.0) sec POC Glucose (mg/dL) 150 H (75-99) mg/dL Microbiology - Last 24 Hours (Table) 09/23/19 21:05 Blood Culture - Preliminary Blood No Growth after 24 hours Assessment and Plan Assessment: Atrial fibrillation with RVR Leukocytosis Right shoulder pain Hypothyroidism Hypertension Depression TSH negative. Echocardiogram shows EF 55-60% with mild concentric LVH. Contin ue metoprolol by mouth. Continue Eliquis for anticoagulation. Continue telemetry monitoring. Cardiology on board. Leukocytosis of 12.1. Likely reactive. No signs of infection. Continue to monitor. Repeat CBC tomorrow morning. Right shoulder x-ray shows no fracture or dislocation, DJD of the glenohumeral joint and before meals joint, cortical irregularity of the greater tuberosity may represent sequelae of chronic rotator cuff pathology. She was given a steroid injection in her shoulder by orthopedic surgery. Continue oxycodone by mouth. Follow orthopedic surgery in the outpatient setting for surgical intervention. Restart Synthroid for hypothyroidism. Restart amlodipine and continue metoprolol for hypertension. Restart Paxil for depression. Patient is pending clinical improvement. Possible DC tomorrow with cardiology clearance.
[2019-09-25 20:19] LABS: Glucose,Whole Blood 192 mg/dL (75-99)
[2019-09-25] MEDS: ATORVASTATIN 10 MG TAB PO SCH (20:28)
[2019-09-25 20:34] LABS: Hemoglobin A1C 6.8 % (4.0-6.0)
[2019-09-26] MEDS ORDERED: MELATONIN 3 MG TABLET PO PRN (00:18)
[2019-09-26] MEDS: GABAPENTIN 300 MG CAP PO SCH ×2 (05:03→13:26)
[2019-09-26 05:32] LABS: Basophils % (A) 0 %; Eosinophils # (A) 0.1 k/uL (0-0.7); Eosinophils % (A) 1 %; HGB 10.7 gm/dL (11.4-16.0); Hypochromasia Slight; Lymphocytes # (A) 2.4 k/uL (1.0-4.8); Lymphocytes % (A) 26 %; MCH 27.8 pg (25.0-35.0); MCHC 30.7 g/dL (31.0-37.0); MCV 90.5 fL (80.0-100.0); Mean Platelet Volume 9.8; Monocytes # (A) 0.6 k/uL (0-1.0); Monocytes % (A) 6 %; Neutrophils # (A) 6.1 k/uL (1.3-7.7); Neutrophils % (A) 65 %; Platelet Count 186 k/uL (150-450); RBC 3.87 m/uL (3.80-5.40); RDW 13.7 % (11.5-15.5); WBC 9.3 k/uL (3.8-10.6)
[2019-09-26 05:38] LABS: African American GFR (CKD) >90 (>60 ml/min/1.73 sqM); Anion Gap 6 mmol/L; Blood Urea Nitrogen 17 mg/dL (7-17); Calcium 9.2 mg/dL (8.4-10.2); Carbon Dioxide 31 mmol/L (22-30); Chloride 98 mmol/L (98-107); Glucose 162 mg/dL (74-99); Non-African American GFR(CKD) >90 (>60 ml/min/1.73 sqM); Potassium 4.5 mmol/L (3.5-5.1); Sodium 135 mmol/L (137-145)
[2019-09-26] MEDS: LEVOTHYROXINE 75 MCG TAB PO SCH (06:50)
[2019-09-26] MEDS: PANTOPRAZOLE 40 MG TABLET PO SCH (06:50)
[2019-09-26] MEDS: APIXABAN 5 MG TAB PO SCH (08:36)
[2019-09-26] MEDS: AMIODARONE 200 MG TAB PO SCH (08:36)
[2019-09-26] MEDS: PARoxetine 20 MG TAB PO SCH (08:37)
[2019-09-26] MEDS: METOPROLOL TARTRATE 25 MG TAB PO SCH (08:37)
[2019-09-26 09:10] VITALS: RESP 14
[2019-09-26] MEDS ORDERED: AMIODARONE 200 MG TAB PO SCH (09:15)
--- NOTE | 2019-09-26 09:37 | PN ---
PROGRESS NOTE Mrs. Amanda is a 74-year-old female who presented with shoulder discomfort. She had an episode of atrial fibrillation. She is back in sinus mechanism. She is feeling well this morning. Her shoulder discomfort is better. She denies any chest pain. She denies any dizziness or palpitation. She denies any nausea. She is able to take a deep breath. She had an echocardiogram performed yesterday that showed a normal left ventricular size and systolic function with mild mitral and tricuspid regurgitation. She continues to be at this time on amiodarone 400 mg twice a day, Eliquis 5 mg twice a day, Lipitor 10 mg daily, metoprolol tartrate 25 mg twice a day. PHYSICAL EXAMINATION: Blood pressure 120/70 with a heart rate in 60s. LUNGS: Clear. Heart regular rate and rhythm S1, S2. No S3. No rub. ABDOMEN: Soft, nontender. EXTREMITIES: No edema. LAB DATA: Revealed a BUN and creatinine 17 and 0.49, potassium 4.5, hemoglobin of 10.7. IMPRESSION: 1. Paroxysmal atrial fibrillation back in sinus mechanism. 2. Hypertension.. 3. Shoulder discomfort, musculoskeletal in etiology. RECOMMENDATIONS: I will cut down her dose of amiodarone to 200 mg twice a day. Continue the Eliquis. Increase her level of activity. If she remains stable, I would expect she should be able to be discharged home soon and followed as an outpatient. MMODL / IJN: [id number] /
--- NOTE | 2019-09-26 13:01 | P.DS ---
Providers Date of admission: 09/25/19 03:11 Attending physician: Abran Figueroa MD Consults: 09/24/19 08:54 Consult Physician Stat Consulting Provider: Chiki Almanza Consult Reason/Comments: r shoulder pain Do you want consulting provider notified?: Yes 09/25/19 02:52 Consult Physician Urgent Consulting Provider: Bipin Herrera Consult Reason/Comments: new onset afib Do you want consulting provider notified?: Yes [facility] Course: Atrial fibrillation with RVR Leukocytosis Right shoulder pain Hypothyroidism Hypertension Depression 74 year old woman with history of HTN, HypoTSH, chronic low back pain, Depression presented with abdominal pain and right shoulder pain. After ACS was ruled out, the shoulder pain appeared to be MSK in nature. A shoulder XR did not show acute fracture or dislocation, but did show chronic rotator cuff pathology, which was treated with steroid injection by ortho with significant relief. Her hospital course was complicated by AFib with RVR, which cardiology managed. TSH negative. Echocardiogram shows EF 55-60% with mild concentric LVH. Continue metoprolol by mouth. Continue Eliquis for anticoagulation. On day of discharge was cleared by cardiology for outpatient follow up. She did have a leukocytosis which was thought to be reactive, as well as a mild hypoxia at night, which was felt to be due to component of undiagnosed BAIRON, which would fit with the picture of A Fib. She was advised to follow up with PCP, cardiology as needed, and ortho as outpatient for surgical evaluation. I also mentioned that obtaining a referral from PCP for a sleep study to evaluate for BAIRON would be advisable. I spent more than 30 minutes coordinating this discharge. Patient Condition at Discharge: Stable Plan - Discharge Summary Discharge Rx Participant: Yes New Discharge Prescriptions: New Pantoprazole [Protonix] 40 mg PO DAILY #30 tablet. Apixaban [Eliquis] 5 mg PO BID #60 tab Continue PARoxetine [Paxil] 20 mg PO DAILY Estrogens, Conjugated [Premarin] 0.3125 mg PO WE oxyCODONE HCL [oxyCODONE HCL (IR)] 10 mg PO Q6H PRN PRN Reason: Pain Levothyroxine Sodium [Synthroid] 75 mcg PO DAILY Gabapentin 600 mg PO Q8H amLODIPine [Norvasc] 5 mg PO DAILY Simvastatin 5 mg PO HS Discharge Medication List Estrogens, Conjugated [Premarin] 0.3125 mg PO WE 09/23/19 [History] Gabapentin 600 mg PO Q8H 09/23/19 [History] Levothyroxine Sodium [Synthroid] 75 mcg PO DAILY 09/23/19 [History] PARoxetine [Paxil] 20 mg PO DAILY 09/23/19 [History] Simvastatin 5 mg PO HS 09/23/19 [History] amLODIPine [Norvasc] 5 mg PO DAILY 09/23/19 [History] oxyCODONE HCL [oxyCODONE HCL (IR)] 10 mg PO Q6H PRN 09/23/19 [History] Pantoprazole [Protonix] 40 mg PO DAILY #30 tablet. 09/24/19 [Rx] Apixaban [Eliquis] 5 mg PO BID #60 tab 09/25/19 [Rx] Follow up Appointment(s)/Referral(s): Araceli Sue PAC [REFERRING] - 2 Weeks Jovanni Baltazar MD [STAFF PHYSICIAN] - 1 Week Feliberto Dumas MD [REFERRING] - 1-2 days Chiki Almanza MD [STAFF PHYSICIAN] - 1 Week [facility] Visiting Nurse, [NON-STAFF] - 1-2 Days Activity/Diet/Wound Care/Special Instructions: Diet: Low-salt Follow-up PCP within 3 days of discharge. Follow-up with orthopedic surgery within 1 week of discharge.
[2019-09-26 13:20] VITALS: BP 117/51; PULSE 56; TEMP 97.9
== END 2019-09-26 14:34 | disposition home or self-care (01) | DRG 310 ==
LOC: EC 19:46 → 3NCARDOBS 09-24 01:01 → 1SOBS 09-24 08:45 → OBSVTOIN 09-25 03:11 → 2SICU 09-25 05:52
PROVIDERS: ADMIT Internal Medicine; ATTEND Internal Medicine
PROC: 3E0U33Z Introduction of Anti-inflammatory into Joints, Percutaneous Approach (ICD-10-PCS; principal; 2019-09-24)
PROC: 3E0U3BZ Introduction of Anesthetic Agent into Joints, Percutaneous Approach (ICD-10-PCS; principal; 2019-09-24)
DX: I48.0 Paroxysmal atrial fibrillation (principal); K21.9 Gastro-esophageal reflux disease without esophagitis; G89.29 Other chronic pain; D72.829 Elevated white blood cell count, unspecified; E03.9 Hypothyroidism, unspecified; E11.9 Type 2 diabetes mellitus without complications; E78.5 Hyperlipidemia, unspecified; F32.9 Major depressive disorder, single episode, unspecified; I10 Essential (primary) hypertension; K57.90 Diverticulosis of intestine, part unspecified, without perforation or abscess without bleeding; K76.0 Fatty (change of) liver, not elsewhere classified; M19.011 Primary osteoarthritis, right shoulder; M19.041 Primary osteoarthritis, right hand; M19.042 Primary osteoarthritis, left hand; M41.9 Scoliosis, unspecified; M54.12 Radiculopathy, cervical region; Z79.890 Hormone replacement therapy; Z79.899 Other long term (current) drug therapy; Z82.49 Family history of ischemic heart disease and other diseases of the circulatory system; Z83.3 Family history of diabetes mellitus; Z91.19 Patient's noncompliance with other medical treatment and regimen; R09.02 Hypoxemia; Z90.89 Acquired absence of other organs; M75.101 Unspecified rotator cuff tear or rupture of right shoulder, not specified as traumatic; G47.33 Obstructive sleep apnea (adult) (pediatric)
CPT/HCPCS: 36415; 71046; 74177; 76705; 80048; 80053; 81001; 82150; 83036; 83605; 83690; 84443; 84484; 85025; 85379; 85610; 85730; 87040; 93005; 93306; 96361; 96372; 96374; 96375; 96376; 99285

== ENCOUNTER → 2020-02-02 | Outpatient (CLI) | payer MEDICARE, OTHER ==
[2020-02-02 17:08] LABS: African American GFR (CKD) 84.2 (60.0-200.0); Albumin 4.6 g/dL (3.80-4.90); Albumin/Globulin Ratio 2.09 (1.60-3.17); Anion Gap 6.5 mmol/L (4.00-12.00); BUN/Creat Ratio 18.75 Ratio (12.00-20.00); Calcium 9.7 mg/dL (8.7-10.3); Carbon Dioxide 29.5 mmol/L (21.6-31.8); Chol/HDL Ratio 3.16; Globulin 2.2 g/dL (1.6-3.3); LDL Cholesterol,Calculated 61.2 mg/dL (0.0-131.0); Non-African American GFR(CKD) 72.6 (60.0-200.0); Potassium 4.5 mmol/L (3.5-5.5); Total Protein 6.8 g/dL (6.2-8.2); VLDL Calculation 33.8 mg/dL (5.00-40.00)
== END | disposition home or self-care (01) ==
LOC: LABWHC1 09:39
PROVIDERS: ATTEND Internal Medicine Interventional Cardiology
DX: E78.2 Mixed hyperlipidemia (principal)
CPT/HCPCS: 36415; 80053; 80061

== ENCOUNTER 2020-02-03 06:24 | Day surgery (SDC) | payer MEDICARE, OTHER ==
[~2020-02-03 06:24] MED LIST: ALPRAZolam 0.25 MG TAB PO PRN; ALPRAZolam 0.5 MG TAB PO PRN; NITROGLYCERIN SL TABS 0.4 MG TAB SUBLINGUAL PRN; SODIUM CHLORIDE 0.9% 1,000 ML in EMPTY BAG 1 BAG IV ONE
[2020-02-03] MEDS ORDERED: ASPIRIN 325 MG TAB PO ONE (07:00)
[2020-02-03 07:08] VITALS: TEMP 98.8
[2020-02-03] MEDS ORDERED: LIDOCAINE 1% INJ 10MG/ML (20 ML MDV) ONE (07:15)
[2020-02-03] MEDS ORDERED: fentaNYL (PF) 50 MCG/ML 2 ML AMP ONE (07:15)
[2020-02-03] MEDS ORDERED: VERAPAMIL 2.5 MG/ML 2 ML AMP ONE (07:15)
[2020-02-03 07:27] LABS: Basophils % (A) 1 %; Eosinophils # (A) 0.2 k/uL (0-0.7); Eosinophils % (A) 3 %; HCT 41.5 % (34.0-46.0); HGB 12.9 gm/dL (11.4-16.0); Lymphocytes # (A) 2.6 k/uL (1.0-4.8); Lymphocytes % (A) 39 %; MCH 27.2 pg (25.0-35.0); MCHC 31.2 g/dL (31.0-37.0); MCV 87.1 fL (80.0-100.0); Mean Platelet Volume 9.1; Monocytes # (A) 0.4 k/uL (0-1.0); Monocytes % (A) 6 %; Neutrophils # (A) 3.4 k/uL (1.3-7.7); Neutrophils % (A) 50 %; Platelet Count 175 k/uL (150-450); RBC 4.76 m/uL (3.80-5.40); RDW 14.5 % (11.5-15.5); WBC 6.7 k/uL (3.8-10.6)
[2020-02-03] MEDS ORDERED: fentaNYL (PF) 50 MCG/ML 2 ML AMP IVP ONE (07:34)
[2020-02-03] MEDS ORDERED: LIDOCAINE 1% INJ 10MG/ML (20 ML MDV) SQ ONE (07:39)
[2020-02-03] MEDS ORDERED: VERAPAMIL SYRINGE (5 MG/10 ML) INTRAARTER ONE (07:45)
[2020-02-03] MEDS ORDERED: HEPARIN SODIUM 1,000 UN/ML (10ML VL) ONE (07:48)
[2020-02-03] MEDS ORDERED: HEPARIN SODIUM 1,000 UN/ML (10ML VL) IV ONE (07:50)
[2020-02-03] MEDS ORDERED: IOPAMIDOL-370 125ML BTL INJ ONE (07:59)
[2020-02-03] MEDS ORDERED: RX INFO: IV CONTRAST WAS GIVEN 1 EACH MISC MISCELLANE PRN (08:12)
[2020-02-03] MEDS ORDERED: GABAPENTIN 300 MG CAP PO SCH (08:15)
[2020-02-03] MEDS ORDERED: ESTROGENS, CONJUGATED 0.625 MG TAB PO SCH (08:15)
[2020-02-03] MEDS ORDERED: SODIUM CHLORIDE 0.9% 1,000 ML IV SCH (08:15)
--- NOTE | 2020-02-03 08:39 | CC ---
CARDIAC CATHETERIZATION REPORT Mrs. Amanda is a 74-year-old female with known history of hypertension, hyperlipidemia, diabetes mellitus, as well as paroxysmal atrial fibrillation, who recently underwent a myocardial perfusion imaging that revealed evidence of inducible ischemia involving the inferior wall. In view of that, recommendation was made regarding cardiac catheterization. The procedure as well as the risks and the complications were discussed with the patient who is in full understanding and agreement. PROCEDURE: Patient was brought to the lab pack chemist in a fasting semi-sedated state after receiving fentanyl and Benadryl and achieving moderate conscious sedated state. Using Xylocaine anesthesia and the Seldinger technique a 6-Kosovan sheath was introduced in the right radial artery. Selective right and left coronary angiography performed using 5-Kosovan 3.5 bend right and left Jose F catheter multiple views of the coronary artery including hemiaxial views obtained. Following that, a 5-Kosovan tight pigtail catheter was introduced in the left ventricle and a 30-degree TSE view of the left ventricle was obtained. Following that, catheter and sheath were removed. Hemostasis was obtained with deployment of a TR band. There was no immediate complication. Patient was returned to room in stable condition. Of note, the patient received 4000 units of intravenous heparin as well as intra-arterial verapamil. FINDINGS: FLUOROSCOPY: There was severe mitral anulus calcification as well as calcification of the LAD and the right coronary artery. LEFT MAIN: This is a short size vessel, bifurcating into left circumflex, left anterior descending artery. Left main coronary artery has no evidence of high-grade stenosis. LEFT ANTERIOR DESCENDING CORONARY ARTERY: This is a large-sized vessel reaching toward the apex with a wraparound apex segment giving rise to small diagonal branch. Left anterior descending artery proximally has an intimal plaque of 20% to 30% without any evidence of high-grade stenosis. LEFT CIRCUMFLEX: This is a nondominant vessel giving rise to 3 obtuse marginal branches. The left circumflex as well as branches have no evidence of obstructive coronary artery disease. RIGHT CORONARY ARTERY: This is a large dominant vessel bifurcating into PDA and posterolateral segment branches. The right coronary artery in the proximal segment has a 20% to 30% plaque. The rest of the vessel has no high-grade stenosis. LEFT VENTRICULOGRAM: Left ventriculogram is performed in 30-degree TSE view revealed normal left ventricular size and systolic function. Ejection fraction is 60%. There was arrhythmia-induced mitral regurgitation. HEMODYNAMICS: There was no gradient across the aortic valve. The left ventricle end-diastolic pressure was 14 to 16 mmHg. CONCLUSION: 1. Mild intimal disease involving the proximal left anterior descending artery and the proximal right coronary artery. 2. Calcified left anterior descending artery and right coronary artery with calcification of the mitral anulus. 3. Normal left ventricular size and systolic function. RECOMMENDATION: In view of finding anatomy, I recommend continue medical therapy with aggressive coronary risk modifications being initiated. Those findings and recommendation were discussed with the patient and her family and they are in full understanding and agreement. Duration of the sedation is 23 minutes. MMODL / IJN: [id number] /
[2020-02-03] MEDS ORDERED: PARoxetine 20 MG TAB PO SCH (09:00)
[2020-02-03] MEDS ORDERED: amLODIPine 5 MG TAB PO SCH (09:00)
[2020-02-03] MEDS ORDERED: LEVOTHYROXINE 75 MCG TAB PO SCH (09:00)
[2020-02-03 09:09] VITALS: RESP 16
[2020-02-03 12:52] VITALS: BP 142/63; PULSE 64
[2020-02-03] MEDS ORDERED: SIMVASTATIN 5 MG PO SCH (21:00)
[2020-02-03] MEDS ORDERED: PANTOPRAZOLE 40 MG TABLET PO SCH (21:00)
== END 2020-02-03 12:55 | disposition home or self-care (01) ==
LOC: CATHCVL 06:24
PROVIDERS: ATTEND Internal Medicine Interventional Cardiology
DX: I25.10 Atherosclerotic heart disease of native coronary artery without angina pectoris (principal); I25.84 Coronary atherosclerosis due to calcified coronary lesion; I10 Essential (primary) hypertension; R94.39 Abnormal result of other cardiovascular function study; E78.2 Mixed hyperlipidemia; E11.9 Type 2 diabetes mellitus without complications; I48.0 Paroxysmal atrial fibrillation; Z98.1 Arthrodesis status; Z98.890 Other specified postprocedural states; M19.90 Unspecified osteoarthritis, unspecified site; Z82.49 Family history of ischemic heart disease and other diseases of the circulatory system; Z87.891 Personal history of nicotine dependence; Z79.01 Long term (current) use of anticoagulants; Z79.890 Hormone replacement therapy; Z79.899 Other long term (current) drug therapy
CPT/HCPCS: 93458; 85025; C1769; C1894; J2001; J3010; J1644; Q9967

== ENCOUNTER → 2021-02-02 | Outpatient (CLI) | payer MEDICARE, OTHER ==
[2021-02-03 00:45] LABS: ALT 9 U/L (8-44); AST 13 U/L (13-35); African American GFR (CKD) 98.2 (60.0-200.0); Albumin 4.5 g/dL (3.8-4.9); Alkaline Phosphatase 87 U/L (41-126); BUN/Creat Ratio 30.43 Ratio (12.00-20.00); Blood Urea Nitrogen 21.3 mg/dL (9.0-27.0); Calcium 9.9 mg/dL (8.7-10.3); Carbon Dioxide 29.5 mmol/L (20.0-27.5); Chloride 99 mmol/L (96-109); Chol/HDL Ratio 2.96 Ratio; Globulin 2.5 g/dL (1.6-3.3); Glucose 119 mg/dL (70-110); LDL Cholesterol,Calculated 67.5 mg/dL (0.0-131.0); Non-African American GFR(CKD) 84.8 (60.0-200.0); Potassium 4.3 mmol/L (3.5-5.5); Sodium 140 mmol/L (135-145)
== END | disposition home or self-care (01) ==
LOC: LABWHC1 13:23
PROVIDERS: ATTEND Internal Medicine Interventional Cardiology
DX: E78.2 Mixed hyperlipidemia (principal)
CPT/HCPCS: 36415; 80053; 80061